=== PATIENT | female | born 1985 | race Caucasian/White ===

== ENCOUNTER 2017-01-20 14:06 | Observation (INO) | payer MEDICAID ==
[2017-01-20 14:54] VITALS: BP 119/57; PULSE 82; O2SAT 99
== END 2017-01-20 16:50 | disposition home or self-care (01) ==
LOC: MED SURG 14:06
PROVIDERS: ADMIT Family Medicine; ATTEND Family Medicine
DX: Z34.83 Encounter for supervision of other normal pregnancy, third trimester (principal)
CPT/HCPCS: 59025; G0378

== ENCOUNTER 2017-01-23 10:01 | Observation (INO) | payer MEDICAID ==
[2017-01-23 10:47] VITALS: BP 119/62; PULSE 81
== END 2017-01-23 11:45 | disposition home or self-care (01) ==
LOC: OB 10:01
PROVIDERS: ADMIT Family Medicine; ATTEND Family Medicine
DX: Z34.83 Encounter for supervision of other normal pregnancy, third trimester (principal)
CPT/HCPCS: 59025; G0378

== ENCOUNTER 2017-01-26 11:32 | Observation (INO) | payer MEDICAID ==
[2017-01-26 12:02] VITALS: BP 119/63; O2SAT 98
[2017-01-26 12:53] VITALS: PULSE 85
--- NOTE | 2017-01-26 14:14 | XRAY ---
Indication: IUGR. Ultrasound biophysical profile study was performed. Comparison: January 20, 2017. There is again a single viable intrauterine in breech presentation. heart rate not recorded but there is heart rate demonstrated on cine. Cervical length measures 3.5 cm. 4 quadrant LIZZIE is 8.1 cm, previously 7.8. Largest amniotic pocket is 2.5 cm. 2 points given for breathing, movements, tone, and amniotic fluid volume. Impression: Total biophysical profile score is again 8 out of 8.
== END 2017-01-26 12:55 | disposition home or self-care (01) ==
LOC: OB 11:32
PROVIDERS: ADMIT Family Medicine; ATTEND Family Medicine
DX: Z34.83 Encounter for supervision of other normal pregnancy, third trimester (principal)
CPT/HCPCS: 59025; 76819; G0378

== ENCOUNTER 2017-01-30 14:31 | Observation (INO) | payer MEDICAID ==
[2017-01-30 14:48] VITALS: BP 112/70; PULSE 90
== END 2017-01-30 16:20 | disposition home or self-care (01) ==
LOC: OB 14:31
PROVIDERS: ADMIT Family Medicine; ATTEND Family Medicine
DX: Z34.83 Encounter for supervision of other normal pregnancy, third trimester (principal)
CPT/HCPCS: 59025; G0378

== ENCOUNTER 2017-02-01 18:23 | Observation (INO) | payer MEDICAID ==
[2017-02-01 19:56] VITALS: BP 118/57; PULSE 77
== END 2017-02-01 21:10 | disposition home or self-care (01) ==
LOC: OB 18:23
PROVIDERS: ADMIT Family Medicine; ATTEND Family Medicine
DX: Z34.83 Encounter for supervision of other normal pregnancy, third trimester (principal)
CPT/HCPCS: 59025; G0378

== ENCOUNTER 2017-02-02 11:56 | Inpatient (IN) | payer MEDICAID ==
[~2017-02-02 11:56] MED LIST: Adacel Vial IM ONE; Astramorph-Pf 5 MG/10 ML IV ONE; Naropin 0.5% 30 ML VIAL IJ ONE; Pitocin 10 UNITS/ML IV ONE; SUBLIMAZE 100 MCG/2 ML IV ONE; Zofran 4 MG/2 ML VIAL IV ONE
--- NOTE | 2017-02-02 12:46 | XRAY ---
Indication: well-being and weight. Limited OB ultrasound was performed and compared to January 18, 2017. Again there is a single viable intrauterine in breech presentation. heart rate 145 bpm. BPD measures 7.74 cm corresponding to 31 weeks 0 days. HC measures 30.13 cm corresponding to 33 weeks 3 days. AC measures 29.70 cm corresponding to 33 weeks 5 days. FL measures 6.61 cm corresponding to 34 weeks 0 days. Estimated weight 4 lbs. 14 oz., +/-12 ounces. Approximately 5th percentile. LIZZIE is 1.85 cm. Impression: Again single viable intrauterine with mean gestational age 33 weeks 0 days. Fetus continues to measure smaller today measuring 5 days smaller than the comparison study and 21 days smaller than first sonogram of August 16, 2016. New oligohydramnios. Comment: Preliminary report was given.
--- NOTE | 2017-02-02 12:49 | XRAY ---
Indication: well-being and weight. Ultrasound biophysical profile study was performed compared to January 26, 2017. Again there is a single viable intrauterine in breech presentation. heart rate 145 bpm. 4 quadrant LIZZIE is now 1.85 cm, previously 8.1 cm. 2 points given for breathing, movements, and tone. 0 points for amniotic fluid volume. Impression: Total biophysical profile score is now 6 out of 8. New oligohydramnios. Comment: Preliminary report was given.
[2017-02-02] MEDS ORDERED: Lactated Ringers 1,000 ML IV ONE ×2 (13:47→15:00)
[2017-02-02] MEDS ORDERED: BICITRA 30 ML CUP PO SCH (14:00)
[2017-02-02] MEDS ORDERED: Lactated Ringers 1,000 ML IV SCH (14:00)
[2017-02-02] MEDS ORDERED: Pepcid 20 MG VIAL IV SCH (14:00)
[2017-02-02] MEDS ORDERED: Reglan 10 MG/2 ML IV SCH (14:00)
[2017-02-02 14:13] LABS: Mean Cell Volume 98.9 fl (78-100); Mean Platelet Volume 9.7 fl (6-9.5); Platelet Count 404 K/mm3 (150-450); Red Cell Distribution Width 15.5 % (11.5-14.0); White Blood Count 16.5 K/mm3 (4.0-10.5)
[2017-02-02 14:14] LABS: Mean Corpuscular Hemoglobin 32.8 pg (26-32)
[2017-02-02 14:27] LABS: INR 0.94 (0.8-3.0); PROTIME 10.5 SECONDS (9.95-12.35)
[2017-02-02 14:30] LABS: PTT 25.6 SECONDS (25.3-37.0)
[2017-02-02] MEDS ORDERED: KEFZOL 1 GM ONE (15:00)
[2017-02-02] MEDS ORDERED: HOLD NARCOTIC ANALGESICS AND SEDATIVES X24 HR MC PRN (18:16)
[2017-02-02] MEDS ORDERED: Anucort-HC SUPPOSITORY PR PRN (18:16)
[2017-02-02] MEDS ORDERED: TYLENOL EXTRA STRENGTH 500 MG PO PRN (18:16)
[2017-02-02] MEDS ORDERED: Dulcolax 10 MG SUPP PR PRN (18:16)
[2017-02-02] MEDS ORDERED: Dermoplast Spray TP PRN (18:16)
[2017-02-02] MEDS ORDERED: Restoril 15 MG PO PRN (18:16)
[2017-02-02] MEDS ORDERED: TUCKS TP PRN (18:16)
[2017-02-02] MEDS ORDERED: Ambien 10 MG PO PRN (18:16)
[2017-02-02] MEDS ORDERED: Sodium Chloride 0.9% 10 ML FLUSH Syringe IJ PRN (18:16)
[2017-02-02] MEDS ORDERED: BENADRYL 50 MG/ML IV PRN (18:16)
[2017-02-02] MEDS ORDERED: Narcan 0.4 MG/ML IV PRN (18:16)
[2017-02-02] MEDS ORDERED: Nubain 10 MG/ML IV PRN (18:16)
[2017-02-02] MEDS ORDERED: LANSINOH 40 GM TOP PRN (18:16)
[2017-02-02] MEDS ORDERED: Zofran 4 MG/2 ML VIAL IV PRN (18:16)
[2017-02-02] MEDS ORDERED: CLARITIN 10 MG PO PRN (18:16)
[2017-02-02] MEDS ORDERED: CORTISONE 1% CREAM TP PRN (18:16)
[2017-02-02] MEDS ORDERED: DEMEROL 50 MG IV PRN (18:16)
[2017-02-02] MEDS ORDERED: Mylicon 80MG PO PRN (18:16)
[2017-02-02] MEDS ORDERED: MORPHINE SULFATE 2 MG INJ IV PRN (18:16)
[2017-02-02 18:22] LABS: Bacteria FEW /HPF (NEGATIVE); COMPLETE URINE MICROSCOPIC? YES; Collection Type CATH; Epithelial Cells MODERATE /HPF (FEW); Ph 6.5 (5-6); WBC 0-2 /HPF (0-5)
[2017-02-02 18:23] LABS: Trichomonas PRESENT /HPF (NEGATIVE)
[2017-02-02] MEDS: Dextrose 5%-Lr IV Solution 1000 ML 1,000 ML IV SCH (19:02)
[2017-02-03] MEDS: Dextrose 5%-Lr IV Solution 1000 ML 1,000 ML IV SCH ×2 (03:54→13:42)
[2017-02-03] MEDS: Colace 100 MG PO SCH ×3 (04:02→21:26)
[2017-02-03] MEDS: PERCOCET TABLET 5/325MG PO PRN ×3 (04:41→14:37)
[2017-02-03 05:58] LABS: Mean Cell Volume 99.3 fl (78-100); Mean Platelet Volume 9.9 fl (6-9.5); Platelet Count 350 K/mm3 (150-450); Red Blood Count 2.69 M/mm3 (4.1-5.4); White Blood Count 19.4 K/mm3 (4.0-10.5)
[2017-02-03 05:59] LABS: Mean Corpuscular Hemoglobin 31.9 pg (26-32)
[2017-02-03 06:38] VITALS: O2SAT 100
--- NOTE | 2017-02-03 07:54 | OP ---
SURGERY DATE/TIME: 02/02/2017 4241 PREOPERATIVE DIAGNOSES: 1) Term intrauterine . 2) Intrauterine growth restriction. 3) Oligohydramnios. 4) Previous section. 5) Undesired fertility. POSTOPERATIVE DIAGNOSES: 1) Term intrauterine . 2) Intrauterine growth restriction. 3) Oligohydramnios. 4) Previous section. 5) Undesired fertility. 6) Delivered. PROCEDURES: 1) Repeat lower uterine segment transverse incision section. 2) Bilateral tubal ligation by partial salpingectomy. SURGEON: Dr. Marques. ANESTHESIA: Spinal. HISTORY: The patient is a 31 year old white female who presents now at 36 weeks estimated gestational age. We have been following the patient for intrauterine growth restriction with weekly biophysical profiles and twice weekly nonstress test. On today's evaluation in the ultrasound department the patient was found to have total amount of amniotic fluid reported as 1.9 cm. The patient was instructed to come back to the hospital. After appropriate time waiting after she emptied her stomach after having a brownie, we took her for section surgery. We did appraise the patient of the risks of the procedure including the risk of wound infection, possible bleeding requiring transfusion, possible injury to any intra-abdominal organs and also failure rate of the tubal procedure 1:300. The patient verbalized her understanding and desired to have the procedure performed. DESCRIPTION OF PROCEDURE: The patient was prepped and draped in the supine position. After adequate regional anesthesia was confirmed, a Pfannenstiel incision was made over the previous scar and carried down sharply through the fascia which was divided in a horizontal fashion. The rectus muscles were then bluntly and sharply dissected away from the overlying fascia and bluntly retracted laterally. The peritoneum was then entered. A bladder flap was developed and the bladder was retracted inferiorly. The uterus was scored in a horizontal fashion and entered in the midline. The wound was then extended using bandage scissors. There was noted to be very small amount of amniotic fluid present upon entering the abdominal cavity. A white male was delivered from the alex breech position. The cord was doubly clamped and divided between the clamps. The baby was handed off for further care. The placenta was then manually removed from the uterus and sent off for evaluation. The uterus was then repaired using 1-0 chromic suture in a running, interlocking fashion. Next, the left fallopian tube was identified and elevated with [place] clamp in its mid portion. A hemostat was passed through an avascular section of the mesosalpinx and the tube was tied on either side of the elevated area. The interceding section was then excised. The right tube was similarly treated. The cul-de-sac area was then swabbed clear of blood and amniotic fluid and the uterus was replaced in the abdominal cavity. Paracolic gutters were also swabbed clear of blood and amniotic fluid. The peritoneum was then repaired using 3-0 chromic suture in a running fashion. The fascia was repaired using 0 Vicryl suture in a running fashion. The skin edges were reapproximated using 4-0 Vicryl suture in a subcuticular fashion and reinforced with Steri-Strips. The sponge, needle and instrument count was reported as correct at the end of the procedure. Estimated blood loss was 100 cc. The patient was taken back to the recovery room in good condition.
[2017-02-03 08:47] LABS: Fetal Maternal Bleed Qual Negative
[2017-02-03] MEDS: FERREX 150 PO SCH (10:10)
[2017-02-03] MEDS: MOTRIN 400 MG PO PRN ×2 (11:48→19:53)
[2017-02-03] MEDS ORDERED: Rhogam Plus 300 MCG IM ONE (12:00)
[2017-02-03] MEDS: AMOXIL 500 MG PO SCH ×2 (16:09→21:26)
[2017-02-03] MEDS ORDERED: DEMEROL 75 MG IM PRN (18:00)
[2017-02-03] MEDS ORDERED: Phenergan 25 MG INJ IM PRN (18:00)
[2017-02-04] MEDS: Tylenol #3 Tablet PO PRN ×2 (03:40→14:56)
[2017-02-04] MEDS: MOTRIN 400 MG PO PRN (08:26)
[2017-02-04] MEDS: Colace 100 MG PO SCH (08:26)
[2017-02-04] MEDS: FERREX 150 PO SCH (08:26)
--- NOTE | 2017-02-04 10:04 | PCM.DS ---
Discharge Summary Date of Admission: 02/02/17 13:32 Admitting Physician: DEION EID Consults: Consults on Case 02/02/17 13:47 Notify Anesthesia Provider ROUTINE Notify Physician OF ADMISSION 02/02/17 18:17 Notify Anesthesia Provider PRN Primary Care Provider: DEION EID Allergies Allergies No Known Drug Allergies Allergy (Verified 01/20/17 14:55) Hospital Summary - Hospital Course Hospital Course: at 36 wks s/p repeat c/section, done for oligohydramnios and concern for IUGR. Today she complains of some lower abdominal pain helped by Tylenol #3. No dizziness. Bleeding normally. Ready to d/c this evening. - Vitals & Intake/Output Vital Signs: Vital Signs Temperature 97.8 F 02/04/17 08:00 Pulse Rate 75 02/04/17 08:00 Respiratory Rate 16 02/04/17 08:00 Blood Pressure 107/53 02/04/17 08:00 O2 Sat by Pulse Oximetry 100 02/03/17 06:00 Intake & Output: Intake & Output 02/01/17 02/02/17 02/03/17 02/04/17 11:59 11:59 11:59 11:59 Intake Total 4221 1600 Output Total 850 Balance 3371 1600 Weight 56.699 kg - Lab Result Diagrams: 02/03/17 05:12 Lab Results-Last 24 Hrs: Lab Results-Last 24 Hours 02/02/17 Range/Units Unknown Maternal Bleed Not Reportable Matrnl Bl Rh Ig Not Reportable - Radiology Exams Ordered Rad Exams-Entire Visit: Radiology Procedures Category Date Time Status OB BIOPHYSICAL W/O NON STRESS [US] Routine Exams 02/02/17 12:00 Completed OB LIMITED [US] Routine Exams 02/02/17 12:00 Completed Discharge Exam General Appearance: no apparent distress Neurologic Exam: alert, oriented x 3, cooperative Skin Exam: normal color, warm, dry Respiratory Exam: normal breath sounds, lungs clear, No crackles/rales, No rhonchi, No wheezing Cardiovascular Exam: regular rate/rhythm, normal heart sounds, No murmur Gastrointestinal/Abdomen Exam: soft, normal bowel sounds, other (fundus firm under umbilicus. wound c/d/i.) Extremity Exam: normal inspection, No pedal edema, No swelling Final Diagnosis/Problem List - Final Discharge Diagnosis/Problem (1) delivery delivered Current Visit: Yes Status: Acute Assessment & Plan: She is moving about well, does complain of some pain, will be sending her home with T3 for pain control. (2) Anemia Current Visit: Yes Status: Acute Assessment & Plan: Hgb 8.6 post operatively; home on iron BID. - Discharge Disposition: Home, Self-Care Condition: Stable Prescriptions: New Ferrous Sulfate 325 mg [Feosol 325 mg] 325 mg PO BID #60 tablet Codeine Phosphate/APAP #3 [Tylenol #3 Tablet] 1 - 2 tab PO Q4H PRN PRN # 35 tablet PRN Reason: Severe Pain Continue Vits W-Ca,Fe,FA(<1Mg) [] 1 each PO DAILY Amoxicillin 500 mg PO TID
[2017-02-04] MEDS: AMOXIL 500 MG PO SCH ×2 (10:41→14:56)
[2017-02-04 15:27] VITALS: BP 122/71; PULSE 97
== END 2017-02-04 18:55 | disposition home or self-care (01) | DRG 765 ==
LOC: EDSTATUS 11:56 → RAD 11:56 → OB 13:32
PROVIDERS: ADMIT Family Medicine; ATTEND Family Medicine
PROC: 10D00Z1 Extraction of Products of Conception, Low, Open Approach (ICD-10-PCS; principal; 2017-02-02)
PROC: 0UB70ZZ Excision of Bilateral Fallopian Tubes, Open Approach (ICD-10-PCS; 2017-02-02)
DX: O34.211 Maternal care for low transverse scar from previous cesarean delivery (principal); O41.03X0 Oligohydramnios, third trimester, not applicable or unspecified; O36.5930 Maternal care for other known or suspected poor fetal growth, third trimester, not applicable or unspecified; Z3A.36 36 weeks gestation of pregnancy; Z37.0 Single live birth; Z30.2 Encounter for sterilization
CPT/HCPCS: 01961; 36415; 59025; 64425; 76815; 76819; 76942; 80307; 81000; 85027; 85461; 85610; 85730; 86850; 86870; 86900; 86901; 88184; 88302; 88307; 90715; 94799; G0378; J0690; J2274; J2405; J2590; J2790; J2795; J3010; L0625; A9270-GY